=== PATIENT | female | born 2000 | race Two or more races ===

== ENCOUNTER 2022-02-06 06:57 | Emergency (ER) | payer OTHER ==
[~2022-02-06] VITALS: Ht 165.1 cm; Wt 73.9 kg
[2022-02-06] MEDS ORDERED: PRENATAL + DHA1 EAC1 PO (08:15)
== END 2022-02-06 12:32 | disposition home or self-care (01) ==
LOC: ER 06:57
DX: O21.8 Other vomiting complicating pregnancy (principal); Z3A.09 9 weeks gestation of pregnancy; K29.70 Gastritis, unspecified, without bleeding; Z20.822 Contact with and (suspected) exposure to COVID-19

== ENCOUNTER 2022-02-09 00:25 | Emergency (ER) | payer OTHER ==
[~2022-02-09] VITALS: Ht 165.1 cm; Wt 73.9 kg
[~2022-02-09 00:25] MED LIST: PRENATAL + DHA1 EAC1 PO
== END 2022-02-09 03:29 ==
LOC: ER 00:25
DX: O98.511 Other viral diseases complicating pregnancy, first trimester (principal); Z88.0 Allergy status to penicillin; Z20.822 Contact with and (suspected) exposure to COVID-19; J09.X2 Influenza due to identified novel influenza A virus with other respiratory manifestations; Z3A.09 9 weeks gestation of pregnancy

== ENCOUNTER 2022-03-08 17:53 | Emergency (ER) | payer OTHER ==
[~2022-03-08] VITALS: Ht 165.1 cm; Wt 74.4 kg
== END 2022-03-08 21:42 | disposition home or self-care (01) ==
LOC: ER
DX: O21.8 Other vomiting complicating pregnancy (principal); Z3A.13 13 weeks gestation of pregnancy; Z88.0 Allergy status to penicillin

== ENCOUNTER 2022-04-29 08:01 | Outpatient (CLI) | payer OTHER | END 2022-04-29 10:07 | disposition home or self-care (01) | LOC: PRENATAL 08:01 | PROVIDERS: ATTEND Obstetrics & Gynecology Maternal & Fetal Medicine | DX: O35.9XX0 Maternal care for (suspected) fetal abnormality and damage, unspecified, not applicable or unspecified (principal); O35.3XX0 Maternal care for (suspected) damage to fetus from viral disease in mother, not applicable or unspecified; Z3A.20 20 weeks gestation of pregnancy ==

== ENCOUNTER 2022-06-03 20:06 | Emergency (ER) | payer OTHER ==
[~2022-06-03] VITALS: Ht 157.5 cm; Wt 77.1 kg
== END 2022-06-03 21:51 | disposition home or self-care (01) ==
LOC: ER 20:06
DX: O26.892 Other specified pregnancy related conditions, second trimester (principal); Z3A.25 25 weeks gestation of pregnancy

== ENCOUNTER 2022-06-27 08:08 | Outpatient (CLI) | payer OTHER | END 2022-06-27 09:08 | disposition home or self-care (01) | LOC: PRENATAL 08:08 | PROVIDERS: ATTEND Obstetrics & Gynecology Maternal & Fetal Medicine | DX: O26.849 Uterine size-date discrepancy, unspecified trimester (principal); Z3A.28 28 weeks gestation of pregnancy ==

== ENCOUNTER 2022-07-21 17:12 | Emergency (ER) | payer OTHER ==
[~2022-07-21] VITALS: Ht 165.1 cm; Wt 82.6 kg
== END 2022-07-21 19:13 | disposition home or self-care (01) ==
LOC: ER 17:12
DX: O98.513 Other viral diseases complicating pregnancy, third trimester (principal); J06.9 Acute upper respiratory infection, unspecified; Z88.0 Allergy status to penicillin; Z88.8 Allergy status to other drugs, medicaments and biological substances; Z3A.32 32 weeks gestation of pregnancy

== ENCOUNTER 2022-07-25 07:41 | Outpatient (CLI) | payer OTHER | END 2022-07-25 08:28 | disposition home or self-care (01) | LOC: PRENATAL 07:41 | PROVIDERS: ATTEND Obstetrics & Gynecology Maternal & Fetal Medicine | DX: O26.849 Uterine size-date discrepancy, unspecified trimester (principal); O36.8199 Decreased fetal movements, unspecified trimester, other fetus; O28.3 Abnormal ultrasonic finding on antenatal screening of mother; Z3A.32 32 weeks gestation of pregnancy ==

== ENCOUNTER 2022-09-13 18:16 | Inpatient (IN) | payer OTHER ==
[~2022-09-13] VITALS: Ht 165.1 cm; Wt 87.1 kg
== END 2022-09-16 13:56 | disposition home or self-care (01) | DRG 807 ==
LOC: LDR 18:16 → OB/GYN 09-14 19:53
PROVIDERS: ADMIT Obstetrics & Gynecology; ATTEND Obstetrics & Gynecology
PROC: 3E0P7VZ Introduction of Hormone into Female Reproductive, Via Natural or Artificial Opening (ICD-10-PCS; 2022-09-13)
PROC: 4A1HXCZ Monitoring of Products of Conception, Cardiac Rate, External Approach (ICD-10-PCS; 2022-09-13)
PROC: 10E0XZZ Delivery of Products of Conception, External Approach (ICD-10-PCS; principal; 2022-09-14)
PROC: 3E033VJ Introduction of Other Hormone into Peripheral Vein, Percutaneous Approach (ICD-10-PCS; 2022-09-14)
DX: O99.824 Streptococcus B carrier state complicating childbirth (principal); Z37.0 Single live birth; Z3A.39 39 weeks gestation of pregnancy; Z20.822 Contact with and (suspected) exposure to COVID-19

== ENCOUNTER 2023-06-18 20:53 | Emergency (ER) | payer OTHER ==
[~2023-06-18] VITALS: Ht 165.1 cm; Wt 77.1 kg
[2023-06-18 23:30] LABS: HEMATOCRIT 38.4 % (36.0-45.00); HEMOGLOBIN 12.8 g/dL (12.0-15.00); MEAN CELL VOLUME 76.4 fL (80.00-100.00); MEAN CORPUSCULAR HEMOGLOBIN 25.4 pg (27.00-32.0); MEAN CORPUSCULAR HGB CONC 33.2 g/dl (32.0-36.0); PLATELET COUNT 231 K/uL (150-450); RED BLOOD COUNT 5.02 M/uL (4.00-6.00)
[2023-06-18 23:45] LABS: CALCIUM 9.6 mg/dL (8.5-10.1); CREATININE SERUM 0.7 mg/dL (0.55-1.02); GFR 103.69; POTASSIUM 4.07 mEq/L (3.5-5.1)
== END 2023-06-19 00:30 | disposition home or self-care (01) ==
LOC: ER 20:54
PROVIDERS: Emergency Medicine
DX: R19.7 Diarrhea, unspecified (principal); Z88.0 Allergy status to penicillin